=== PATIENT | female | born 1965 | race Caucasian/White ===

== ENCOUNTER 2016-11-16 09:11 | Emergency (ER) | payer BC ==
--- NOTE | ~2016-11-16 | EKG ---
PATIENT: ESTEVAN BANSAL UNIT #: [id number] Ventricular Rate: 83 BPM Atrial Rate: 83 BPM P-R Interval: 152 ms QRS Duration: 80 ms Q-T Interval: 392 ms QTC Calculation(Bezet): 460 ms P [place]: 17 degrees Calculated R [place]: 4 degrees Calculated T [place]: 28 degrees Diagnosis Line: Normal sinus rhythm Diagnosis Line: Baseline wander Otherwise normal ECG Diagnosis Line: When compared with ECG of 07-APR-2016 08:45, Diagnosis Line: No significant change was found Diagnosis Line: Confirmed by GORGE HOLT MD ([id number]) on 11/17/2016 Diagnosis Line: 5:59:50 PM INTERPRETING MD: JONATHON BROWN
--- NOTE | ~2016-11-16 | CO ---
Unit #: [id number] #: [id number] Patient: ESTEVAN BANSAL [id number] [address] [place], [place] [address] [id number] E MR#: [id number] NAME: ESTEVAN BANSAL ROOM: Age: 51 Sex: F Admission Date: 11/16/2016 : 1965 Attending Physician: Luiz Win M.D. Primary Care Physician: Kurt King CONSULTATION REPORT CHIEF COMPLAINT Chest discomfort. HISTORY OF PRESENT ILLNESS Ms. Bansal is a 51-year-old white female with known history of arteriosclerotic heart disease. Ms. Bansal had a right coronary artery as well as left circ coronary artery stents placed 08/03/[address] Jack. At that time, her cath showed a normal left main, normal LAD, left circ had a distal 90% and proximal had 60% to 70% ulcerated stenosis. The right coronary artery was large dominant and had a distal 90% stenosis and a proximal 90% stenosis. Since then, the patient had a Cardiolite treadmill stress test in 09/2015 showed no ischemia and an EF of 61%. Also had a Lexiscan stress test in 2014 that showed no ischemia. She has had multiple admissions now with complaints of chest discomfort. At this time, it happened about 10 minutes to 8:00. She was at work, she was standing, she felt a crushing midsternal pain that was accompanied by shortness of air, nausea, as well as diaphoresis. She took 1 nitroglycerin. EMS was called. She received 2 more nitroglycerin and then she was chest pain free. PAST MEDICAL HISTORY 1. Arteriosclerotic heart disease with history of non-ST elevated myocardial infarction 07/2013 with stenting to the RCA and circumflex. 2. Hypertension. 3. GERD. 4. Gastric ulcers. 5. Liver mass with biopsy now simply being monitored. 6. Hypothyroidism. 7. Depression. 8. Obstructive sleep apnea, intolerant to CPAP. 9. Chronic diastolic dysfunction. PAST SURGICAL HISTORY Left knee arthroscopy, abdominal hernia repair, bilateral oophorectomy, cholecystectomy, coronary catheterization. HOME MEDICATIONS I currently do not have an accurate home medication list. The patient is being discharged home without changes and she will follow up with her primary care physician in the morning as already scheduled. ALLERGIES Percocet, Flexeril, Cymbalta, Phenergan. Unit #: [id number] #: [id number] Patient: ESTEVAN BANSAL SOCIAL HISTORY She smokes one pack per day down from 2-1/2 packs per day. No alcohol. No illicit drug use. Works director of automation. FAMILY HISTORY Positive for arteriosclerotic heart disease in grandparents and parents 60s and older. No premature arteriosclerotic disease or . REVIEW OF SYSTEMS CONSTITUTIONAL: No fever, no chills. No flu-like symptoms. SKIN: No rash. No hives. RESPIRATORY: Positive for cough and hay fever. Positive for chest discomfort as stated in HPI. No orthopnea. No paroxysmal nocturnal dyspnea. GI: Positive for irritable bowel with chronic diarrhea. Positive for history of gastroesophageal reflux disease and gastric ulcers. : No hematuria, no dysuria. EXTREMITIES: No swelling. PHYSICAL EXAMINATION GENERAL: Well developed, well nourished, white female, seen sitting up in the bed, in no acute distress. Normal sinus rhythm. VITAL SIGNS: Temperature 98.7, blood pressure 109/58, respirations 18, pulse 64. HEENT: Normocephalic and atraumatic. No xanthelasma. Pupils equal, round, reactive to light. Extraocular movements are intact. No jugular venous distention. No elevated CVP. LUNGS: Loose nonproductive cough, otherwise clear to auscultation after rhonchi cleared with cough. HEART: S1 and S2. No S3, S4. No murmurs, rubs, gallops. No lift. ABDOMEN: Obese. EXTREMITIES: Lower extremities, no swelling. No clubbing, cyanosis, or edema. 2+ pulses bilaterally. DIAGNOSTIC STUDIES IMAGING STUDIES: Chest x-ray shows low lung volumes with patchy basilar densities and is favor that this represents vascular crowding and atelectasis. LABORATORY RESULTS: Sodium 138, potassium 3.7, chloride 105, CO2 23, BUN 9, creatinine 0.8, glucose 101, total protein 7.1. AST 15, ALT 16, alkaline phosphatase 101. PT 10.4, INR 1.0, PTT 25.8. Point of care troponin is less than 0.05. Second troponin has been drawn at time of this dictation and result is pending. Hemoglobin 12.5, hematocrit 38.0, white blood cell count 7.1, platelet count 261. ASSESSMENT AND PLAN Chest discomfort with known arteriosclerotic heart disease. 2 negative stresses in 2015 and 2016. The patient has an appointment with her primary care tomorrow, where she is supposed to get an appointment to see a residential subcontractor. The patient does not want to stay in the hospital. She prefers to follow up with her physician and see Gastroenterology in [place] where she lives. She also wants to follow up with Cardiology and have an outpatient stress test. I have made an appointment for 01/05/2017 at 11 a.m. to follow up with Dr. Jack. The office will call with schedule for an outpatient stress test. If her second troponin is negative, she will be allowed to leave and continue with outpatient Unit #: [id number] #: [id number] Patient: ESTEVAN BANSAL jessica. Dictated by... Devante Pascual/sherice TD: 11/17/2016 01:51 JOB #: [id number] CONSULTATION REPORT Page 1 of 1 X X CONSULTATION REPORT
--- NOTE | ~2016-11-16 | CR72 ---
[facility] A Service of [facility] RADIOLOGY TEXT RESULTS PATIENT: ESTEVAN BANSAL LOCATION: [facility] : [birth year] UNIT #: [id number] AGE: [address]: Luiz Win MD SEX: F ORDER DR: [id number] [facility] [address] [place], [place] [address] [id number] E MR#: [id number] Acc #: [id number] NAME: ESTEVAN BANSAL : 1965 SEX: F STUDY DATE/TIME: 11/16/2016 0945 UNIT: [facility] ROOM: STUDY DESCRIPTION: CR Chest Single View Portable Attending Physician: Luiz Win M.D. Ordering Physician: Eloina Olivares Pa-C Primary Care Physician: Kurt King M.D. MEDICAL IMAGING REPORT This report is preliminary unless electronic signature is present EXAM Chest, portable, 11/16/2016, 0945 hours. CLINICAL HISTORY 51-year-old woman with complaint of chest pain this morning. History of smoking and previous coronary stents. COMPARISON 04/07/2016 FINDINGS Portable upright chest demonstrates low lung volumes. The cardiac, mediastinal, and hilar contours are normal. There is patchy bibasilar density with the upper lungs being clear. These basilar changes could represent vascular crowding or atelectasis. It is difficult to exclude pneumonia or basilar edema. No effusion seen. IMPRESSION Low lung volumes with patchy bibasilar densities. It is favored that this represents vascular crowding and atelectasis. It is, however, difficult to exclude basilar pneumonia or edema in this setting, particularly at the left base. There are no effusions. If there is high clinical suspicion, consider followup two-view chest film. Dictated by... Patricia Rueda M.D. THIS IS AN ELECTRONICALLY VERIFIED REPORT Patricia Rueda M.D. at 11/16/2016 2:29 PM LARS/destiney [facility] A Service of [facility] RADIOLOGY TEXT RESULTS PATIENT: ESTEVAN BANSAL [id number] [birth year] UNIT #: [id number] AGE: [address]: Luiz Win MD SEX: F ORDER DR: TD: 11/16/2016 11:50 JOB #: [id number] MEDICAL IMAGING REPORT Page 1 of 1 COPY
[~2016-11-16 09:11] MED LIST: ACID CONTROL150 M1 PO; ASPIRIN81 M2 PO; ASPIRIN81 MG; CRESTOR PO; DESYREL100 MG PO; DIFLUCAN PO; ECOTRIN325 MG PO; EFFEXOR PO; EFFEXOR XR150 MG PO; EFFIENT10 MG PO; EFFIENT5 MG; FLONASE 0.05% N16 GM; HYDROCODON-ACE1 EAC5 PO; KLONOPIN0.5 M3 PO; LASIX20 MG PO; LEVOXYL200 MC1 PO; LISINOPRIL; LISINOPRIL10 MG PO; LISINOPRIL5 MG PO; LOPRESSOR PO; MACROBID100 M1 PO; MACRODANTIN PO; METOPROLOL SUCC25 MG PO; METOPROLOL TAR25 MG; MICRO-K; NEURONTIN PO; NITROGLYGERIN0.4 MG SL; NYSTATIN15 GM OINT TOP; POTASSIUM CHLO10 ME1 PO; PREDNISONE PO; PRINIVIL5 MG PO; PYRIDIUM100 MG PO; SYNTHROID; SYNTHROID PO; SYNTHROID0.2 MG PO; TOPAMAX PO; TOPROL XL PO; TYLENOL #3 PO; VICODIN 5/500 T1 TAB PO; VITAMIN D2 PO; VITAMIN D32000 UNIT PO; ZANTAC; ZANTAC150 M1 PO; ZANTAC150 MG PO; ZOFRAN ODT4 MG; ZOLOFT; ZOLOFT PO; ZOLOFT50 MG PO; ZOVIRAX800 MG PO
[2016-11-16 10:20] LABS: BASOPHIL# 0.1 X10e3 (0-0.3); BASOPHIL% 1.3 % (0-2.5); EOSINOPHIL# 0.2 X10e3 (0-0.7); EOSINOPHIL% 2.1 % (0.0-7.0); HEMOGLOBIN 12.5 gm/dL (12.0-16.0); LYMPHOCYTE# 2.4 X10e3 (1.0-3.5); LYMPHOCYTE% 33.2 % (17.0-45.0); MEAN CELL VOLUME 87.5 FL (83-96); MEAN CORPUSCULAR HEMOGLOBIN 28.7 PG (28-34); MEAN CORPUSCULAR HGB CONC 32.8 g/dL (30-36); MEAN PLATELET VOLUME 6.9 FL (6.5-11.5); MONOCYTE# 0.4 X10e3 (0-1.0); MONOCYTE% 5.2 % (3.0-12.0); NEUTROPHIL# 4.2 X10e3 (1.5-7.1); NEUTROPHIL% 58.2 % (40-75); PLATELET COUNT 261 X10e3 (140-420); RED BLOOD COUNT 4.34 X10e (3.90-5.30); RED CELL DISTRIBUTION WIDTH 13.7 % (11.0-15.5); WHITE BLOOD COUNT 7.1 X10e3 (4.0-10.5)
[2016-11-16 10:22] LABS: DIFF IND NO
[2016-11-16 10:25] LABS: POC - CKMB <1.0 ng/mL (0.0-7.9); POC - TROPONIN <0.05 ng/mL (<=0.05)
[2016-11-16 10:34] LABS: PARTIAL THROMBOPLASTIN TIME 25.8 SECONDS (23.5-31.3); PROTHROMBIN TIME (PATIENT) 10.4 SECONDS (9.6-11.5)
[2016-11-16 10:47] LABS: BILIRUBIN, DIRECT 0.1 mg/dL (0.0-0.2); BILIRUBIN,INDIRECT 0.3 mg/dL (0.0-0.9); BILIRUBIN,TOTAL 0.4 mg/dL (0.2-2.0); BUN/CREATININE RATIO 11.25; CALCIUM SERUM 9.1 mg/dL (8.4-10.2); CREATININE SERUM 0.8 mg/dL (0.6-1.4); GLOM FILT RATE Estimated 85.4 mL/min (>60); POTASSIUM 3.7 mmol/L (3.5-5.1); PROTEIN TOTAL SERUM 7.1 g/dL (6.0-8.3)
[2016-11-16 11:10] LABS: URINE SOURCE CLEAN CATCH
[2016-11-16 11:17] LABS: URINE APPEARANCE CLEAR; URINE BILIRUBIN NEG (NEG); URINE BLOOD NEG (NEG); URINE COLOR YELLOW; URINE GLUCOSE NEG (NEG); URINE KETONE NEG (NEG); URINE LEUKOCYTE ESTERASE 2+ (NEG); URINE NITRATE NEG (NEG); URINE PH 5.5 (5-8); URINE PROTEIN NEG (NEG); URINE SPECIFIC GRAVITY 1.009 (1.003-1.035); URINE UROBILINOGEN 0.2 MG/DL (NEG)
[2016-11-16 11:20] LABS: CULTURE INDICATED? YES; URBCS1 AUWI 0-2 /[HPF] (0-2); URINE BACTERIA AUWI 1+ (NEGATIVE); URINE SQUAMOUS EPITHELIAL CELL OCC /[HPF]
[2016-11-16 12:39] LABS: POC - CKMB 1.1 ng/mL (0.0-7.9); POC - TROPONIN <0.05 ng/mL (<=0.05)
== END 2016-11-16 13:05 | disposition home or self-care (01) ==
LOC: CED 09:11
PROVIDERS: Emergency Medicine; Physician Assistant Medical
DX: R07.89 Other chest pain (principal); I25.10 Atherosclerotic heart disease of native coronary artery without angina pectoris; I25.2 Old myocardial infarction; I10 Essential (primary) hypertension; E78.5 Hyperlipidemia, unspecified; J44.9 Chronic obstructive pulmonary disease, unspecified; K27.9 Peptic ulcer, site unspecified, unspecified as acute or chronic, without hemorrhage or perforation; Z90.49 Acquired absence of other specified parts of digestive tract; Z95.818 Presence of other cardiac implants and grafts; F17.210 Nicotine dependence, cigarettes, uncomplicated; Z79.899 Other long term (current) drug therapy
CPT/HCPCS: 36415; 71010; 80048; 80076; 81003; 82553; 84484; 85025; 85610; 85730; 87086; 93005; 99284

== ENCOUNTER 2016-12-19 13:58 | Emergency (ER) | payer BC ==
--- NOTE | ~2016-12-19 | CT2 ---
[facility] A Service of [facility] RADIOLOGY TEXT RESULTS PATIENT: ESTEVAN BANSAL LOCATION: SED : 65 UNIT #: [id number] AGE: [address]: Margarette Nuno MD SEX: F ORDER DR: [id number] [address] [address] [id number] E MR#: [id number] Acc #: [id number] NAME: ESTEVAN BANSAL. : 1965 SEX: F STUDY DATE/TIME: 12/19/2016 16:10 UNIT: SED ROOM: STUDY DESCRIPTION: CT Abd and Pelv W Cont Attending Physician: Margarette Nuno M.D. Ordering Physician: Margarette Nuno M.D. Primary Care Physician: Kurt King MEDICAL IMAGING REPORT This report is preliminary unless electronic signature is present. EXAM CT abdomen and pelvis with contrast, 12/19/2016 HISTORY 51-year-old female with left-sided abdominal pain beginning today. Rectal bleeding for 1 week. COMPARISON: CT abdomen and pelvis 05/22/2011 and 06/30/2015. TECHNIQUE Helical scan performed through the abdomen and pelvis following administration of IV contrast. Coronal and sagittal reformatted images. The CT exam was performed with one or more of the following radiation dose reduction techniques: automatic exposure control, adjustment of mA and/or kV according to patient size, and iterative reconstruction. FINDINGS Visualized lung bases demonstrate dependent bibasilar atelectasis. Previously noted hepatic lesion is not well seen on today's examination. Remainder the liver is unremarkable. The spleen, pancreas, both adrenal glands, both kidneys are within normal limits. The gallbladder surgically absent. Abdominal aorta normal in course and caliber without dissection.. There is some questionably thickened loops of distal ileum. This could represent ileitis in the appropriate clinical setting. Infectious or inflammatory etiologies may be considered. Remainder of small bowel is unremarkable without evidence of obstruction. The appendix is normal. Colon is unremarkable. No free fluid or free air. Urinary bladder, uterus, and adnexa are unremarkable. No free pelvic fluid. No acute bony abnormality. STS. [facility] A Service of [facility] RADIOLOGY TEXT RESULTS PATIENT: ESTEVAN BANSAL LOCATION: SED : 65 UNIT #: [id number] AGE: [address]: Margarette Nuno MD SEX: F ORDER DR: IMPRESSION 1. Equivocal mild circumferential wall thickening of multiple distal ileal loops. This could represent ileitis in the appropriate clinical setting. Correlate for possible infectious or inflammatory etiologies. No evidence of bowel obstruction. 2. Normal appendix. 3. Previously noted right hepatic lesion is not clearly visualized on today's exam. If indicated, consider followup imaging with a non emergent multiphase CT or MRI. 4. Cholecystectomy. Dictated by... Romain Zamora M.D. THIS IS AN ELECTRONICALLY VERIFIED REPORT Romain Zamora M.D. at 12/21/2016 1:33 PM MICHEL/ludmila TD: 12/20/2016 07:55 JOB #: [id number] MEDICAL IMAGING REPORT Page 1 of 1
[2016-12-19] MEDS ORDERED: ZOFRAN (14:23)
[2016-12-19] MEDS ORDERED: BENTYL10 MG (14:23)
[2016-12-19 15:18] LABS: URINE SOURCE CLEAN CATCH
[2016-12-19 15:21] LABS: URINE APPEARANCE CLEAR; URINE BILIRUBIN NEG (NEG); URINE BLOOD 1+ (NEG); URINE COLOR YELLOW; URINE GLUCOSE NEG (NORM); URINE KETONE NEG (NEG); URINE LEUKOCYTE ESTERASE TRACE (NEG); URINE NITRATE NEG (NEG); URINE PH 5.5 (5-8); URINE PROTEIN NEG (NEG); URINE UROBILINOGEN 0.2 MG/DL (NORM)
[2016-12-19 15:23] LABS: BASOPHIL# 0.1 X10e3 (0-0.3); EOSINOPHIL# 0.2 X10e3 (0-0.7); EOSINOPHIL% 3.2 % (0.0-7.0); HEMATOCRIT 36.1 % (35.0-45.0); HEMOGLOBIN 12.2 gm/dL (12.0-16.0); LYMPHOCYTE# 1.9 X10e3 (1.0-3.5); LYMPHOCYTE% 32.5 % (17.0-45.0); MEAN CELL VOLUME 87.5 FL (83-96); MEAN CORPUSCULAR HEMOGLOBIN 29.5 PG (28-34); MEAN CORPUSCULAR HGB CONC 33.7 g/dL (30-36); MEAN PLATELET VOLUME 6.9 FL (6.5-11.5); MONOCYTE# 0.4 X10e3 (0-1.0); MONOCYTE% 7.4 % (3.0-12.0); NEUTROPHIL# 3.3 X10e3 (1.5-7.1); NEUTROPHIL% 55.9 % (40-75); PLATELET COUNT 295 X10e3 (140-420); RED BLOOD COUNT 4.12 X10e (3.90-5.30); RED CELL DISTRIBUTION WIDTH 13.3 % (11.0-15.5); WHITE BLOOD COUNT 5.9 X10e3 (4.0-10.5)
[2016-12-19 15:24] LABS: DIFF IND NO
[2016-12-19 15:25] LABS: MICRO INDICATED? YES
[2016-12-19 15:35] LABS: CULTURE INDICATED? NO; URINE BACTERIA NEG (NEG); URINE MUCUS PRESENT; URINE RBC 0-2 /[HPF] (0-2); URINE SQUAMOUS EPITHELIAL CELL FEW /[HPF]; URINE WBC NEG /[HPF] (0-5)
[2016-12-19 15:37] LABS: PROTHROMBIN TIME (PATIENT) 11.4 SECONDS (9.5-12.4)
[2016-12-19 15:48] LABS: ALBUMIN SERUM 3.7 g/dL (3.5-5.0); ALKALINE PHOSPHATASE 117 U/L (32-92); ALT (SGPT) 14 U/L (10-40); AST (SGOT) 18 U/L (10-42); BILIRUBIN,TOTAL 0.1 mg/dL (0.2-2.0); BLOOD UREA NITROGEN 8 mg/dL (9-23); CALCIUM SERUM 8.5 mg/dL (8.4-10.2); CARBON DIOXIDE 24 mmol/L (22-31); CHLORIDE 109 mmol/L (100-111); CREATININE SERUM 0.8 mg/dL (0.6-1.4); GLOM FILT RATE Estimated 85.4 mL/min (>60); GLUCOSE FASTING 105 mg/dL (70-110); POTASSIUM 3.4 mmol/L (3.5-5.1); PROTEIN TOTAL SERUM 7.1 g/dL (6.0-8.3); SODIUM 139 mmol/L (135-145)
[2016-12-19 15:59] LABS: BILIRUBIN, DIRECT <0.1 mg/dL (0.0-0.2)
== END 2016-12-19 18:08 | disposition home or self-care (01) ==
LOC: SED 13:58
PROVIDERS: Emergency Medicine
DX: K52.9 Noninfective gastroenteritis and colitis, unspecified (principal); I10 Essential (primary) hypertension; J44.9 Chronic obstructive pulmonary disease, unspecified; K21.9 Gastro-esophageal reflux disease without esophagitis; F17.210 Nicotine dependence, cigarettes, uncomplicated; Z98.890 Other specified postprocedural states
CPT/HCPCS: 36415; 74177; 80048; 80076; 81003; 85025; 85610; 85730; 96361; 96374; 96375; 99284; J2270; J2405; Q9967

== ENCOUNTER 2017-03-13 19:43 | Emergency (ER) | payer BC ==
[~2017-03-13] VITALS: Ht 167.6 cm; Wt 88.5 kg
--- NOTE | ~2017-03-13 | CT2 ---
[facility] A Service of [facility] RADIOLOGY TEXT RESULTS PATIENT: ESTEVAN BANSAL LOCATION: SED : 65 UNIT #: [id number] AGE: [address]: Olayinka Euceda MD SEX: F ORDER DR: [id number] [address] [address] [id number] E MR#: [id number] Acc #: [id number] NAME: ESTEVAN BANSAL. : 1965 SEX: F STUDY DATE/TIME: 03/13/2017 22:26 UNIT: SED ROOM: STUDY DESCRIPTION: CT Abd and Pelv W Cont Attending Physician: Olayinka Euceda M.D. Ordering Physician: Olayinka Euceda M.D. Primary Care Physician: Kurt King MEDICAL IMAGING REPORT This report is preliminary unless electronic signature is present. EXAM CT scan of the abdomen and pelvis with contrast 03/13/2017 HISTORY Nausea, vomiting and diarrhea and abdominal pain for [address] was performed through the abdomen and pelvis following intravenous contrast administration only as per clinician request. The CT exam was performed with one or more of the following radiation dose reduction techniques: automatic exposure control, adjustment of mA and/or kV according to patient size, and iterative reconstruction. FINDINGS Abdomen: Exam is limited by the lack of oral contrast. Liver is normal in appearance. Calcified granulomas are seen within the spleen. There is enlargement of the pancreatic tail with inflammatory stranding in the surrounding peripancreatic fat with extension into the left anterior pararenal space characteristic of acute pancreatitis. No abscess or pseudocyst is seen. The gallbladder is surgically absent. No biliary ductal dilatation is seen. The adrenal glands and kidneys are normal. Pelvis Findings: There is circumferential mild wall thickening of multiple distal loops of small bowel extending to the terminal ileum. Findings could reflect inflammatory or infectious ileitis. Clinical correlation is recommended. No bowel obstruction is seen. The appendix is normal. The colon is normal in appearance. No adenopathy is seen and there is no free fluid in the abdomen or pelvis. Atelectatic changes are seen at the lung bases. [facility] A Service of [facility] RADIOLOGY TEXT RESULTS PATIENT: ESTEVAN BANSAL LOCATION: SED : 65 UNIT #: [id number] AGE: [address]: Olayinka Euceda MD SEX: F ORDER DR: IMPRESSION 1. Exam is limited by the lack of oral contrast. 2. Diffuse enlargement of the pancreatic tail with inflammatory stranding in the surrounding peripancreatic fat extending into the left anterior pararenal space characteristic of acute pancreatitis. No abscess or pseudocyst is seen. Correlation with clinical and laboratory findings is recommended. 3. Surgical absence of the gallbladder. 4. Mild circumferential wall thickening of multiple distal small bowel loops extending to the terminal ileum probably reflecting inflammatory or infectious ileitis. Clinical correlation is recommended. No bowel obstruction or abscess is seen. Dictated by... Blair Chan M.D. THIS IS AN ELECTRONICALLY VERIFIED REPORT Blair Chan M.D. at 03/14/2017 2:22 PM HAYDEE/ludmila TD: 03/14/2017 13:12 JOB #: [id number] MEDICAL IMAGING REPORT Page 1 of 1
--- NOTE | ~2017-03-13 | EKG ---
PATIENT: ESTEVAN BANSAL UNIT #: [id number] Ventricular Rate: 85 BPM Atrial Rate: 85 BPM P-R Interval: 152 ms QRS Duration: 84 ms Q-T Interval: 378 ms QTC Calculation(Bezet): 449 ms P [place]: 27 degrees Calculated R [place]: 13 degrees Calculated T [place]: 35 degrees Diagnosis Line: Normal sinus rhythm Diagnosis Line: Normal ECG Diagnosis Line: When compared with ECG of 16-NOV-2016 09:20, Diagnosis Line: No significant change was found Diagnosis Line: Confirmed by JOSUE LEONARD MD ([id number]) on Diagnosis Line: 03/15/2017 11:19:15 AM INTERPRETING MD: AISHA BROWN
[~2017-03-13 19:43] MED LIST changes: +BENTYL10 MG; +ZOFRAN
[2017-03-13 21:19] LABS: URINE SOURCE CLEAN CATCH
[2017-03-13 21:21] LABS: MICRO INDICATED? NO; URINE APPEARANCE CLEAR; URINE BILIRUBIN NEG (NEG); URINE BLOOD NEG (NEG); URINE COLOR YELLOW; URINE GLUCOSE NEG (NORM); URINE KETONE NEG (NEG); URINE LEUKOCYTE ESTERASE NEG (NEG); URINE NITRATE NEG (NEG); URINE PROTEIN NEG (NEG); URINE UROBILINOGEN 0.2 MG/DL (NORM)
[2017-03-13 21:30] LABS: BASOPHIL# 0.1 X10e3 (0-0.3); BASOPHIL% 0.7 % (0-2.5); EOSINOPHIL# 0.2 X10e3 (0-0.7); EOSINOPHIL% 2.4 % (0.0-7.0); HEMATOCRIT 36.4 % (35.0-45.0); HEMOGLOBIN 12.3 gm/dL (12.0-16.0); LYMPHOCYTE# 2.2 X10e3 (1.0-3.5); LYMPHOCYTE% 26.9 % (17.0-45.0); MEAN CELL VOLUME 86.7 FL (83-96); MEAN CORPUSCULAR HEMOGLOBIN 29.3 PG (28-34); MEAN CORPUSCULAR HGB CONC 33.8 g/dL (30-36); MEAN PLATELET VOLUME 6.9 FL (6.5-11.5); MONOCYTE# 0.5 X10e3 (0-1.0); MONOCYTE% 6.6 % (3.0-12.0); NEUTROPHIL# 5.2 X10e3 (1.5-7.1); NEUTROPHIL% 63.4 % (40-75); PLATELET COUNT 252 X10e3 (140-420); RED CELL DISTRIBUTION WIDTH 13.3 % (11.0-15.5); WHITE BLOOD COUNT 8.1 X10e3 (4.0-10.5)
[2017-03-13 21:31] LABS: DIFF IND NO
[2017-03-13 21:44] LABS: POC - CKMB 1.8 ng/mL (0.0-7.9); POC - TROPONIN <0.05 ng/mL (<=0.05)
[2017-03-13 21:53] LABS: ALKALINE PHOSPHATASE 90 U/L (32-92); ALT (SGPT) 11 U/L (10-40); AMYLASE 115 U/L (0-46); AST (SGOT) 15 U/L (10-42); BILIRUBIN, DIRECT <0.1 mg/dL (0.0-0.2); BILIRUBIN,INDIRECT 0.3 mg/dL (0.0-0.9); BILIRUBIN,TOTAL 0.4 mg/dL (0.2-2.0); BLOOD UREA NITROGEN 7 mg/dL (9-23); BUN/CREATININE RATIO 8.75; CALCIUM SERUM 8.5 mg/dL (8.4-10.2); CARBON DIOXIDE 25 mmol/L (22-31); CHLORIDE 107 mmol/L (100-111); CREATININE SERUM 0.8 mg/dL (0.6-1.4); GLOM FILT RATE Estimated 84.8 mL/min (>60); GLUCOSE FASTING 99 mg/dL (70-110); LIPASE 366 U/L (22-51); POTASSIUM 3.3 mmol/L (3.5-5.1); PROTEIN TOTAL SERUM 7.2 g/dL (6.0-8.3); SODIUM 136 mmol/L (135-145)
== END 2017-03-14 07:56 ==
LOC: SED 19:43
PROVIDERS: Emergency Medicine
DX: K85.90 Acute pancreatitis without necrosis or infection, unspecified (principal); J44.9 Chronic obstructive pulmonary disease, unspecified; K21.9 Gastro-esophageal reflux disease without esophagitis; F17.200 Nicotine dependence, unspecified, uncomplicated; Z90.49 Acquired absence of other specified parts of digestive tract; Z88.6 Allergy status to analgesic agent; Z88.8 Allergy status to other drugs, medicaments and biological substances; Z79.899 Other long term (current) drug therapy
CPT/HCPCS: 74177; 80048; 80076; 81003; 82150; 82553; 83690; 83874; 84484; 85025; 93005; 96374; 96375; 99291; C9113; J1170; J2270; J2405; Q9967